=== PATIENT | female | born 2000 | race African-American/Black ===

== ENCOUNTER 2022-06-23 17:07 | Emergency (ER) | payer MEDICAID ==
[~2022-06-23] VITALS: Ht 172.7 cm; Wt 75.5 kg
[2022-06-23 17:14] VITALS: BP 126/74
== END 2022-06-23 20:26 | disposition left against medical advice (07) ==
LOC: ER 17:07
DX: R55 Syncope and collapse (principal); M25.532 Pain in left wrist; J45.909 Unspecified asthma, uncomplicated; Z91.018 Allergy to other foods
CPT/HCPCS: 81025; 99284